=== PATIENT | male | born 1975 | race African-American/Black ===

== ENCOUNTER 2021-11-04 14:11 | Emergency (ER) | payer MEDICARE, MEDICAID ==
[~2021-11-04] VITALS: Ht 180.3 cm; Wt 82.0 kg
[2021-11-04] MEDS ORDERED: [UNRECOGNIZED DRUG - CODE] (14:37)
[2021-11-04] MEDS ORDERED: IMIP25TA6 PO (14:37)
[2021-11-04] MEDS ORDERED: OXYB5TAB17 PO (14:37)
[2021-11-04 17:18] LABS: CLARITY URINE CLEAR (CLEAR); COLOR URINE YELLOW (YELLOW); KETONES URINE NEGATIVE (NEGATIVE); LEUKOCYTE ESTERASE URINE 1+ (NEGATIVE); NITRITE URINE POSITIVE (NEGATIVE); OCCULT BLOOD URINE NEGATIVE (NEGATIVE); PROTEIN URINE NEGATIVE (NEGATIVE); SPECIFIC GRAVITY URINE 1.015 (1.005-1.030)
[2021-11-04] MEDS ORDERED: CEPH500T MT (19:34)
[2021-11-04 20:06] VITALS: BP 110/78
== END 2021-11-04 20:06 | disposition home or self-care (01) ==
LOC: ER 14:15
DX: N30.90 Cystitis, unspecified without hematuria (principal); N50.812 Left testicular pain; G82.20 Paraplegia, unspecified; R03.0 Elevated blood-pressure reading, without diagnosis of hypertension; N50.0 Atrophy of testis; T14.8XXS Other injury of unspecified body region, sequela; X95.9XXS Assault by unspecified firearm discharge, sequela
CPT/HCPCS: 76870; 81003; 93976; 99284